=== PATIENT | male | born 1975 | race American Indian/Alaskan Native ===

== ENCOUNTER 2017-03-18 08:24 | Emergency (ER) | payer MEDICARE ==
[2017-03-18 08:32] VITALS: BP 116/72
[2017-03-18 08:51] LABS: Basophils % (Auto) 0.7 % (0.0-1.8); Eosinophils % (Auto) 0.9 % (0.0-4.3); Hematocrit 39.6 % (35.5-45.6); Hemoglobin 12.8 gm/dl (11.8-15.2); Mean Corpuscular HGB Conc 32 % (32-34); Mean Corpuscular Volume 78 fl (84-94); Platelet Count 221 K/mm3 (140-440); Red Blood Count 5.05 M/mm3 (3.65-5.03); Red Cell Distribution Width 15.3 % (13.2-15.2); White Blood Count 14.1 K/mm3 (4.5-11.0)
[2017-03-18 08:59] LABS: Mean Corpuscular Hemoglobin 25 pg (28-32)
[2017-03-18 09:08] LABS: Anion Gap 18 mmol/L; BUN/Creatinine Ratio 20; Blood Urea Nitrogen 14 mg/dL (9-20); Calcium 9.1 mg/dL (8.4-10.2); Carbon Dioxide 25 mmol/L (22-30); Chloride 104.4 mmol/L (98-107); Glucose 113 mg/dL (75-100); Sodium 143 mmol/L (137-145)
== END 2017-03-18 09:00 | disposition left against medical advice (07) ==
LOC: ED 08:24
DX: L02.412 Cutaneous abscess of left axilla (principal); Z53.21 Procedure and treatment not carried out due to patient leaving prior to being seen by health care provider
CPT/HCPCS: 36415; 80048; 85025

== ENCOUNTER 2017-06-02 23:47 | Emergency (ER) | payer MEDICARE ==
[2017-06-03 00:51] VITALS: BP 120/88
[2017-06-03 01:35] LABS: Basophils % (Auto) 0.7 % (0.0-1.8); Eosinophils # (Auto) 0.1 K/mm3 (0.0-0.4); Eosinophils % (Auto) 1.1 % (0.0-4.3); Hematocrit 38.2 % (35.5-45.6); Hemoglobin 12.6 gm/dl (11.8-15.2); Lymphocytes # (Auto) 2.2 K/mm3 (1.2-5.4); Lymphocytes % (Auto) 40.2 % (13.4-35.0); Mean Corpuscular HGB Conc 33 % (32-34); Mean Corpuscular Volume 74 fl (84-94); Monocytes # (Auto) 0.4 K/mm3 (0.0-0.8); Monocytes % (Auto) 7.1 % (0.0-7.3); Platelet Count 176 K/mm3 (140-440); Red Blood Count 5.17 M/mm3 (3.65-5.03); Red Cell Distribution Width 15.6 % (13.2-15.2)
[2017-06-03 01:36] LABS: Mean Corpuscular Hemoglobin 24 pg (28-32)
[2017-06-03 01:37] LABS: Alanine Aminotransferase 20 units/L (7-56); Albumin 4.2 g/dL (3.9-5); BUN/Creatinine Ratio 16; Blood Urea Nitrogen 11 mg/dL (9-20); Calcium 8.8 mg/dL (8.4-10.2); Hemolysis Index 3
[2017-06-03 03:12] LABS: Bilirubin,Urine NEG (Negative); Blood,Urine NEG (Negative); Color,Urine Yellow (Yellow); Mucus,Urine 1+ /HPF; Protein,Urine <15 mg/dL mg/dL (Negative); WBC,Urine < 1.0 /HPF (0.0-6.0)
== END 2017-06-03 10:00 | disposition left against medical advice (07) ==
LOC: ED 23:47
DX: R10.9 Unspecified abdominal pain (principal); Z53.21 Procedure and treatment not carried out due to patient leaving prior to being seen by health care provider
CPT/HCPCS: 36415; 80053; 81001; 85025

== ENCOUNTER 2018-04-06 02:46 | Emergency (ER) | payer MEDICARE ==
[2018-04-06 03:10] VITALS: BP 126/59
--- NOTE | 2018-04-06 03:49 | XRay Report ---
FINAL REPORT PROCEDURE: XR FINGER(S) 2+V RT TECHNIQUE: RIGHT index finger radiographs, including AP, lateral, and oblique views. HISTORY: 2nd digit swelling and pain. COMPARISON: No prior studies are available for comparison. FINDINGS: Fracture (s) and/or Dislocation(s): There is a fracture at the anterior lateral base middle phalanx 2 nd digit right hand. This is slightly displaced. The remaining osseous structures are intact. Alignment: Normal. Joint space(s): Normal . Soft tissues: Mild soft tissue swelling over the proximal interphalangeal joint. Bone mineralization: Normal . Foreign bodies: None . IMPRESSION: There is a slightly displaced fracture of the anterior lateral base of the middle phalanx 2nd digit r ight hand. There is associated soft tissue swelling.
[2018-04-06] MEDS ORDERED: PERCOCET 5/325 PO STA (04:14)
--- NOTE | 2018-04-06 04:14 | Emergency Department Report ---
Upper Extremity - [facility] Chief Complaint: Extremity Injury, Upper Stated Complaint: RIGHT HAND PAIN Time Seen by Provider: 04/06/18 04:07 Upper Extremity: Right Index Finger Occurred When: 2 Days Mechanism: Other (Shaun finger on a objects while he was at work resulted in pain and swelling to his right hand. 6 second phalanges. Now he reports having some issues straightness finger out anything his finger somewhat due to pain and throbbing.) Symptoms: Yes Pain with Movement, Yes Limited Range of Movement, Yes Swelling, No Deformity, No Numbness, No Weakness, No Bruising/Ecchymosis, No Laceration or Abrasion ED Review of Systems ROS: Stated complaint: RIGHT HAND PAIN Other details as noted in HPI Constitutional: denies: chills, fever Eyes: denies: eye pain, eye discharge, vision change ENT: denies: ear pain, throat pain Respiratory: denies: cough, shortness of breath, wheezing Cardiovascular: denies: chest pain, palpitations Endocrine: no symptoms reported Gastrointestinal: denies: abdominal pain, nausea, diarrhea Genitourinary: denies: urgency, dysuria Musculoskeletal: arthralgia. denies: back pain, joint swelling Skin: denies: rash, lesions Neurological: denies: headache, weakness, paresthesias Psychiatric: denies: anxiety, depression Hematological/Lymphatic: denies: easy bleeding, easy bruising ED Past Medical Hx - Past Medical History Hx Hypertension: Yes Hx of Cancer: Yes (leukemia) Additional medical history: leukemia,anemia - Surgical History Past Surgical History?: Yes Additional Surgical History: bone marrow transplant 2009 - Social History Smoking Status: Never Smoker Substance Use Type: None - Medications Home Medications: Home Medications Medication Instructions Recorded Confirmed Last Taken Type Acetaminophen/Codeine [Tylenol 1 tab PO Q6H PRN #20 tab 04/06/18 Unknown Rx /Codeine # 3 tab] Ketorolac [Toradol] 10 mg PO Q6H PRN #20 tablet 04/06/18 Unknown Rx Upper Extremity Exam - Exam General: Vital signs noted. No distress. Alert and acting appropriately. Head and Torso: No HEENT Abnormality, No Neck Tenderness, No Chest/Lungs Abnormality, No Abdominal Tenderness, No Back Tenderness Shoulder Exam: Yes Normal Range of Motion in Shoulder, No Shoulder Tenderness, No Clavicle Tenderness, No Shoulder Deformity, No AC Joint Tenderness Arm Exam: No Arm/Humerus Tenderness, No Arm Deformity Elbow: No Elbow Tenderness, No Normal Range of Motion in Elbow, No Elbow Deformity Forearm: No Forearm Tenderness, No Forearm Deformity, No Pain with Pronation, No Pain with Supination Wrist: Yes Normal ROM in Wrist, No Wrist Tenderness, No Wrist Deformity, No Snuffbox Tenderness, No Pain with Axial Thumb Compression Hand: Yes Hand Tenderness (there is swelling, tenderness to the right second phalanges at the proximal interphalangeal joint. There is decreased flexion and extension. Capillary refills are brisk. Normal metacarpal phalangeal joint), Yes Normal ROM in Digit(s), No Hand Deformity, No Digit Tenderness, No Digit(s) Deformity, No Tendon Dysfunction CMS Exam: Yes Normal Distal Pulses, Yes Normal Capillary Refill, Yes Normal Distal Sensation, No Broken Skin Hand L/R Front: 1 - Area of tenderness and some swelling Hand L/R Back: 1 - Area of pain in swelling. Decreased flexion and extension ED Course Vital Signs 04/06/18 03:04 Temperature 98.0 F Pulse Rate 83 Respiratory 18 Rate Blood Pressure 126/59 O2 Sat by Pulse 99 Oximetry ED Medical Decision Making - Radiology Data Radiology results: report reviewed [facility] [address] [place] [address] XRay Report Signed Patient: SANDRA ALMARAZ JR MR#: [id number] : 1975 Acct:[id number] Age/Sex: 42 / M ADM Date: 04/06/18 Loc: ED Attending Dr: Ordering Physician: CARIDAD CADENA MD Date of Service: 04/06/18 Procedure(s): XR finger(s) 2+V RT Accession Number(s): [id number] cc: CARIDAD CADENA MD Fluoro Time In Minutes: FINAL REPORT PROCEDURE: XR FINGER(S) 2+V RT TECHNIQUE: RIGHT index finger radiographs, including AP, lateral, and oblique views. HISTORY: 2nd digit swelling and pain. COMPARISON: No prior studies are available for comparison. FINDINGS: Fracture (s) and/or Dislocation(s): There is a fracture at the anterior lateral base middle phalanx 2nd digit right hand. This is slightly displaced. The remaining osseous structures are intact. Alignment: Normal. Joint space(s): Normal . Soft tissues: Mild soft tissue swelling over the proximal interphalangeal joint. Bone mineralization: Normal . Foreign bodies: None . IMPRESSION: There is a slightly displaced fracture of the anterior lateral base of the middle phalanx 2nd digit right hand. There is associated soft tissue swelling. Transcribed By: [facility] Dictated By: BARI STATON MD Electronically Authenticated By: BARI STATON MD Signed Date/Time: 04/06/18 2258 - Medical Decision Making Neurovascular intact. Capillary refills are brisk splint and we'll place I did discuss with Mr. Almaraz the need to follow with orthopedics for definitive management of his fingers. He still could have some ligamentous damage, which also compromises his ability for range of motion. He did express an understanding. Alert and oriented 3 and does report that he will follow up Critical care attestation.: If time is entered above; I have spent that time in minutes in the direct care of this critically ill patient, excluding procedure time. ED Disposition Clinical Impression: Finger fracture Disposition: DC-01 TO HOME OR SELFCARE Is pt being admited?: No Does the pt Need Aspirin: No Condition: Stable Instructions: Finger Fracture (ED) Prescriptions: Acetaminophen/Codeine [Tylenol /Codeine # 3 tab] 1 tab PO Q6H PRN #20 tab PRN Reason: Pain , Severe (7-10) Ketorolac [Toradol] 10 mg PO Q6H PRN #20 tablet PRN Reason: Pain Referrals: PRIMARY CAREMD [Primary Care Provider] - 3-5 Days VI ESTEVES MD [Staff Physician] - 3-5 Days
== END 2018-04-06 04:55 | disposition home or self-care (01) ==
LOC: ED 02:46
DX: S62.620A Displaced fracture of middle phalanx of right index finger, initial encounter for closed fracture (principal); I10 Essential (primary) hypertension; X58.XXXA Exposure to other specified factors, initial encounter; Y93.89 Activity, other specified; Y92.89 Other specified places as the place of occurrence of the external cause; Y99.8 Other external cause status
CPT/HCPCS: 99283

== ENCOUNTER 2018-04-22 23:28 | Emergency (ER) | payer MEDICARE ==
--- NOTE | 2018-04-23 04:00 | Emergency Department Report ---
ED General Adult HPI - General Chief complaint: Extremity Injury, Upper Stated complaint: R INDEX FINGER PAIN Time Seen by Provider: 04/23/18 01:04 Source: patient Mode of arrival: Ambulatory Limitations: No Limitations - History of Present Illness Initial comments: 42-year-old [place] male to emergency Department complaining of right index finger pain the last 3 weeks. He reports sustaining a fracture to his index finger 3 weeks ago, which was splinted. However, he is taking the Tylenol and order to work and has not yet met yet been to follow-up with or full. He returns complaining of a dull throbbing to the finger which is reemerge over the past 2-3 days and was requesting to have a splint placed back on. -: Gradual Location: upper extremity Improves with: none Worsens with: movement Associated Symptoms: denies: chest pain, cough, malaise, shortness of breath, syncope, weakness - Related Data Previous Rx's Medication Instructions Recorded Last Taken Type Acetaminophen/Codeine [Tylenol 1 tab PO Q6H PRN #20 tab 04/06/18 Unknown Rx /Codeine # 3 tab] Ketorolac [Toradol] 10 mg PO Q6H PRN #20 tablet 04/06/18 Unknown Rx Allergies Allergy/AdvReac Type Severity Reaction Status Date / Time No Known Allergies Allergy Unverified 03/18/17 08:32 ED Review of Systems ROS: Stated complaint: R INDEX FINGER PAIN Other details as noted in HPI Constitutional: denies: chills, fever Eyes: denies: eye pain, eye discharge, vision change ENT: denies: ear pain, throat pain Respiratory: denies: cough, shortness of breath, wheezing Cardiovascular: denies: chest pain, palpitations Endocrine: no symptoms reported Gastrointestinal: denies: abdominal pain, nausea, diarrhea Genitourinary: denies: urgency, dysuria Musculoskeletal: denies: back pain, joint swelling, arthralgia Skin: denies: rash, lesions Neurological: denies: headache, weakness, paresthesias Psychiatric: denies: anxiety, depression Hematological/Lymphatic: denies: easy bleeding, easy bruising ED Past Medical Hx - Past Medical History Previous Medical History?: Yes Hx Hypertension: Yes Additional medical history: leukemia,anemia - Surgical History Past Surgical History?: Yes Additional Surgical History: bone marrow transplant 2009 - Social History Smoking Status: Current Every Day Smoker Substance Use Type: None - Medications Home Medications: Home Medications Medication Instructions Recorded Confirmed Last Taken Type Acetaminophen/Codeine [Tylenol 1 tab PO Q6H PRN #20 tab 04/06/18 Unknown Rx /Codeine # 3 tab] Ketorolac [Toradol] 10 mg PO Q6H PRN #20 tablet 04/06/18 Unknown Rx ED Physical Exam - General Limitations: No Limitations General appearance: alert, in no apparent distress - Head Head exam: Present: atraumatic, normocephalic - Eye Eye exam: Present: normal appearance, PERRL, EOMI Pupils: Present: normal accommodation - ENT ENT exam: Present: mucous membranes moist - Neck Neck exam: Present: normal inspection - Respiratory Respiratory exam: Present: normal lung sounds bilaterally. Absent: respiratory distress - Cardiovascular Cardiovascular Exam: Present: regular rate, normal rhythm. Absent: systolic murmur, diastolic murmur, rubs, gallop - GI/Abdominal GI/Abdominal exam: Present: soft, normal bowel sounds - Rectal Rectal exam: Present: deferred - Extremities Exam Extremities exam: Present: normal inspection, joint swelling (there is some swelling to the the second phalanges area at the level of the interphalangeal joint with some decrease in extension. Pain with flexion and decreased flexion capability as well.) - Back Exam Back exam: Present: normal inspection. Absent: CVA tenderness (R), CVA tenderness (L) - Neurological Exam Neurological exam: Present: alert, oriented X3, CN II-XII intact, motor sensory deficit - Psychiatric Psychiatric exam: Present: normal affect, normal mood - Skin Skin exam: Present: warm, dry, intact, normal color. Absent: rash ED Course Vital Signs 04/22/18 23:36 Temperature 98.5 F Pulse Rate 90 Respiratory 16 Rate Blood Pressure 123/67 O2 Sat by Pulse 100 Oximetry ED Medical Decision Making - Medical Decision Making Discussion Mr. Calhoun. The need to follow-up with the fourth floor this point likely occupational therapy due to the decreasing mobility of his finger and swelling to the interphalangeal joint most likely due to calcification build up. Been that he has not been compliant with his current treatment regimen. I stressed the importance on with the brace until instructed to do otherwise by Critical care attestation.: If time is entered above; I have spent that time in minutes in the direct care of this critically ill patient, excluding procedure time. ED Disposition Clinical Impression: Finger pain, right Disposition: DC-01 TO HOME OR SELFCARE Is pt being admited?: No Does the pt Need Aspirin: No Condition: Stable Instructions: Arthralgia (ED), Finger Fracture (ED) Referrals: SHELLI CHOE DO [Primary Care Provider] - 3-5 Days IV ESTEVES MD [Staff Physician] - 3-5 Days
== END 2018-04-23 04:15 | disposition home or self-care (01) ==
LOC: ED 23:28
CPT/HCPCS: 99282

== ENCOUNTER 2018-08-02 08:56 | Emergency (ER) | payer MEDICARE ==
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
[2018-08-02 10:18] LABS: BUN/Creatinine Ratio 12; Basophils # (Auto) 0.1 K/mm3 (0.0-0.1); Basophils % (Auto) 0.7 % (0.0-1.8); Blood Urea Nitrogen 11 mg/dL (9-20); Calcium 9.3 mg/dL (8.4-10.2); Eosinophils % (Auto) 0.5 % (0.0-4.3); Hematocrit 42.5 % (35.5-45.6); Hemoglobin 13.7 gm/dl (11.8-15.2); Hemolysis Index 11; Lymphocytes % (Auto) 12.1 % (13.4-35.0); Mean Corpuscular HGB Conc 32 % (32-34); Mean Corpuscular Volume 78 fl (84-94); Monocytes # (Auto) 0.4 K/mm3 (0.0-0.8); Monocytes % (Auto) 5.4 % (0.0-7.3); Platelet Count 249 K/mm3 (140-440); Red Blood Count 5.48 M/mm3 (3.65-5.03); Red Cell Distribution Width 14.6 % (13.2-15.2)
[2018-08-02 11:12] VITALS: BP 125/60
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
[2018-08-02] MEDS ORDERED: TORADOL IM ONE (11:32)
== END 2018-08-02 13:04 | disposition home or self-care (01) ==
LOC: ED 08:56
DX: S20.211A Contusion of right front wall of thorax, initial encounter (principal); S60.512A Abrasion of left hand, initial encounter; I10 Essential (primary) hypertension; Z86.2 Personal history of diseases of the blood and blood-forming organs and certain disorders involving the immune mechanism; Y04.8XXA Assault by other bodily force, initial encounter; Y93.89 Activity, other specified; Y92.098 Other place in other non-institutional residence as the place of occurrence of the external cause; Y99.8 Other external cause status
CPT/HCPCS: 36415; 71046; 80048; 85025; 96372; 99284; J1885